=== PATIENT | female | born 1990 | race Caucasian/White ===

== ENCOUNTER 2018-01-22 06:09 | Inpatient (IN) | payer OTHER, SELFPAY ==
[2018-01-22] MEDS ORDERED: OXYTOCIN 30 UNITS IN 0.9% NaCl 500ML IV BAG (J2590) As Ordered (07:22)
[2018-01-22 08:41] LABS: HEMATOCRIT 38.9 % (36.0-47.0); HEMOGLOBIN 13.4 g/dl (12.0-16.0); MEAN CORPUSCULAR HGB CONC 34.4 g/dl (32.0-36.5); PLATELET COUNT, AUTOMATED 227 10^3/uL (150-450); RED BLOOD COUNT 4.47 10^6/uL (4.00-5.40); RED CELL DISTRIBUTION WIDTH 14.6 % (11.5-14.5); WHITE BLOOD COUNT 21.2 10^3/uL (4.0-10.0)
[2018-01-22] MEDS ORDERED: PROMETHAZINE INJ 25 MG/ML VIAL (J2550) IV (09:00)
[2018-01-22] MEDS ORDERED: NALBUPHINE HCL 10 MG/ML AMP (J2300) IM (09:00)
[2018-01-22] MEDS: NALBUPHINE HCL 10 MG/ML AMP (J2300) IV (09:27)
[2018-01-22] MEDS ORDERED: METOCLOPRAMIDE INJ 10MG/2ML VIAL (J2765) IV (11:00)
[2018-01-22] MEDS ORDERED: MEASLES,MUMPS,RUBELLA VACCINE INJ (MMR-II) (90707) SC (11:00)
[2018-01-22] MEDS ORDERED: DIBUCAINE 1% OINTMENT 30GM TOP (11:00)
[2018-01-22] MEDS: OXYTOCIN DRIP 30 UNITS in APPROPRIATE DILUENT 1 EA IV (11:07)
[2018-01-22] MEDS: IBUPROFEN 800 MG TAB PO ×2 (11:36→19:45)
[2018-01-22] MEDS: DOCUSATE SODIUM 100 MG CAP PO ×2 (15:44→19:45)
[2018-01-22] MEDS: ACETAMINOPHEN TAB 650MG DOSE (2X325MG) PO (15:44)
[2018-01-22] MEDS: PRENATAL VITAMINS CHEWABLE TABLET PO (15:44)
[2018-01-23] MEDS: IBUPROFEN 800 MG TAB PO ×2 (04:41→15:48)
[2018-01-23] MEDS: PRENATAL VITAMINS CHEWABLE TABLET PO (08:07)
[2018-01-23] MEDS: DOCUSATE SODIUM 100 MG CAP PO (08:07)
[2018-01-23 12:17] LABS: ANTIBODY IDENTIFICATION 1 1
[2018-01-23] MEDS: RHOGAM 300 MCG (1500 IU) INJ (J2790) IM (12:30)
== END 2018-01-23 17:07 | disposition home or self-care (01) | DRG 775 ==
LOC: M LDO 06:09 → M LDI 06:44 → M OBS 13:13
PROVIDERS: Obstetrics & Gynecology
PROC: 10E0XZZ Delivery of Products of Conception, External Approach (ICD-10-PCS; principal; 2018-01-22)
PROC: 10907ZC Drainage of Amniotic Fluid, Therapeutic from Products of Conception, Via Natural or Artificial Opening (ICD-10-PCS; 2018-01-22)
DX: O80 Encounter for full-term uncomplicated delivery (principal); Z3A.39 39 weeks gestation of pregnancy; Z37.0 Single live birth

== ENCOUNTER 2018-01-28 11:09 | Emergency (ER) | payer OTHER ==
[2018-01-28] MEDS: NS 1,000 ML IV (12:15)
[2018-01-28 12:45] LABS: BASO # 0.1 10^3/uL (0.0-0.2); BASO % 0.6 % (0.0-1.0); EOS # 0.2 10^3/uL (0.0-0.50); EOS % 2.2 % (0.0-3.0); HEMATOCRIT 42.6 % (36.0-47.0); HEMOGLOBIN 14.4 g/dl (12.0-15.5); IMMATURE GRANULOCYTE % 0.5 % (0-3.0); LYMPH # 2.6 10^3/uL (1.5-6.5); LYMPH % 23.3 % (24.0-44.0); MEAN CORPUSCULAR HEMOGLOBIN 30.1 pg (27.0-33.0); MEAN CORPUSCULAR HGB CONC 33.8 g/dl (32.0-36.5); MEAN CORPUSCULAR VOLUME 89.1 fl (80.0-96.0); MONO # 0.7 10^3/uL (0.0-0.8); MONO % 6.3 % (0.0-5.0); NEUTROPHILS # 7.4 10^3/uL (1.8-7.7); NEUTROPHILS % 67.1 % (36.0-66.0); PLATELET COUNT, AUTOMATED 259 10^3/uL (150-450); RED BLOOD COUNT 4.78 10^6/uL (4.00-5.40); RED CELL DISTRIBUTION WIDTH 14.3 % (11.5-14.5); WHITE BLOOD COUNT 11.1 10^3/uL (4.0-10.0)
[2018-01-28 13:02] LABS: KETONE, URINE AUTO RFX NEGATIVE (NEGATIVE); LEUKOCYTE ESTERASE UR AUTO RFX NEGATIVE (NEGATIVE); NITRITE, URINE AUTO RFX NEGATIVE (NEGATIVE); RBC, URINE AUTO RFX 24 /HPF (0-3); SPECIFIC GRAVITY UR AUTO RFX 1.012 (1.002-1.035); SQUAM EPITHELIAL CELL UR AURFX 0 /HPF (0-6); WBC, URINE AUTO RFX 1 /HPF (0-3)
[2018-01-28 13:11] LABS: INR 0.98; PARTIAL THROMBOPLASTIN TIME 28.3 SECONDS (26.8-37.9); PROTHROMBIN TIME 13.1 SECONDS (12.4-14.5)
[2018-01-28 13:14] LABS: ALBUMIN 4.1 GM/DL (3.2-5.2); ALKALINE PHOSPHATASE 88 U/L (45-117); ALT/SGPT 42 U/L (12-78); ANION GAP 7 MEQ/L (8-16); AST/SGOT 27 U/L (7-37); BILIRUBIN,DIRECT 0.1 MG/DL (0.0-0.2); BILIRUBIN,TOTAL 0.5 MG/DL (0.2-1.0); BLOOD UREA NITROGEN 11 MG/DL (7-18); CARBON DIOXIDE LEVEL 25 MEQ/L (21-32); CHLORIDE LEVEL 109 MEQ/L (98-107); CREATININE FOR GFR 0.55 MG/DL (0.55-1.30); GLOMERULAR FILTRATION RATE > 60.0 (>60); GLUCOSE, FASTING 79 MG/DL (70-100); POTASSIUM SERUM 3.7 MEQ/L (3.5-5.1); SODIUM LEVEL 141 MEQ/L (136-145); TOTAL PROTEIN 8.2 GM/DL (6.4-8.2)
[2018-01-28 13:15] LABS: LACTIC ACID SEPSIS PROTOCOL 0.7 MMOL/L (0.4-2.0)
== END 2018-01-28 14:47 | disposition home or self-care (01) ==
LOC: M ED 11:09
DX: O72.2 Delayed and secondary postpartum hemorrhage (principal)
CPT/HCPCS: 76856

== ENCOUNTER → 2018-06-14 | Outpatient (REF) | payer OTHER | LOC: M SFHCLERA 14:49 | DX: N39.0 Urinary tract infection, site not specified (principal) | CPT/HCPCS: 87086 ==

== ENCOUNTER 2019-04-23 09:25 | Outpatient (CLI) | payer OTHER ==
[~2019-04-23] VITALS: Ht 157.5 cm; Wt 61.1 kg
[~2019-04-23 09:25] MED LIST: COLA100C5 PO; IBUP-1114 PO; MAPA500T2 PO; PRENTAB9 PO
[2019-04-23 09:41] VITALS: BP 102/65
[2019-04-23] MEDS ORDERED: ALKACAP5 PO (09:44)
[2019-04-23] MEDS ORDERED: ZANTTAB PO (11:01)
--- NOTE | 2019-04-23 11:16 | HPE ---
DATE OF ADMISSION: 04/23/2019 29-year 3, para 2, last menstrual period (LMP) 10/29/2018, estimated date of confinement (EDC) 08/05/2019 at 25 and 3 weeks of gestation with history of gastrointestinal (GI) upset similar to her last . RISK FACTORS: She is Rh negative, short interval , GI reflux. PAST HISTORY: December 01, 2010 at 39 and 2 weeks, spontaneous vaginal delivery female, 6 pounds 11 ounces. January 22, 2018 at 38 and 3, spontaneous vaginal delivery female, 7 pounds 8 ounces. LABS: A negative. HIV negative. Hep negative. RPR negative. Rubella immune. Varicella immune. Pap normal. Urine negative. Gonorrhea and chlamydia negative. PHYSICAL EXAMINATION: On examination, no acute distress. Upper abdominal discomfort on deep palpation. Tympanic upper abdomen. No nausea or vomiting. Symphysis fundus height is appropriate for 25 weeks. heart rate is present. No contractions noted. No vaginal bleeding or discharge. Blood pressure is 102/65, respirations are 18, pulse is 85 and temperature is 98.2. Urine is 1.000, pH of 8, negative, and trace for blood. In summary, we have a 25 and 3 week gestation with symptomatic gastroesophageal reflux disease, ranitidine was prescribed and the patient has her follow-up appointment in three weeks for regular checkup and RhoGAM.
== END 2019-04-23 11:00 | disposition home or self-care (01) ==
LOC: M LDO 09:25
PROVIDERS: ATTEND Obstetrics & Gynecology
DX: O99.613 Diseases of the digestive system complicating pregnancy, third trimester (principal); K21.9 Gastro-esophageal reflux disease without esophagitis; Z3A.25 25 weeks gestation of pregnancy
CPT/HCPCS: G0378; G0463

== ENCOUNTER 2019-07-22 17:56 | Inpatient (IN) | payer OTHER ==
[~2019-07-22] VITALS: Ht 157.5 cm; Wt 68.2 kg
[~2019-07-22 17:56] MED LIST changes: +ALKACAP5 PO; +ZANT150T40 PO
[2019-07-22 18:03] VITALS: BP 110/71
[2019-07-22] MEDS ORDERED: OXYTOCIN 30 UNITS IN 0.9% NaCl 500ML IV BAG (J2590) As Ordered ONE (18:17)
[2019-07-22 18:28] LABS: HEMATOCRIT 34.7 % (36.0-47.0); HEMOGLOBIN 11.8 g/dl (12.0-15.5); MEAN CORPUSCULAR HEMOGLOBIN 28.4 pg (27.0-33.0); MEAN CORPUSCULAR VOLUME 83.6 fl (80.0-96.0); PLATELET COUNT, AUTOMATED 278 10^3/uL (150-450); RED BLOOD COUNT 4.15 10^6/uL (4.00-5.40); WHITE BLOOD COUNT 17.9 10^3/uL (4.0-10.0)
[2019-07-22 19:29] LABS: CORD GAS ABE A -2.9; CORD GAS ABE V -1.7; CORD GAS HCO3 A 21.9 MEQ/L; CORD GAS HCO3 V 21.1 MEQ/L; CORD GAS O2 SAT V 68.3 %; CORD GAS PCO2 A 38.6 mmHg; CORD GAS PCO2 V 31.7 mmHg; CORD GAS PH A 7.371 UNITS; CORD GAS PH V 7.442 UNITS; CORD GAS PO2 A 13.1 mmHg; CORD GAS PO2 V 26.8 mmHg; CORD GAS SBC A 20.1 MEQ/L; CORD GAS SBC V 22.2 MEQ/L; CORD GAS TCO2 V 22.1 MEQ/L
[2019-07-22] MEDS ORDERED: OXYTOCIN DRIP 30 UNITS in APPROPRIATE DILUENT 1 EA IV SCH (19:35)
[2019-07-22] MEDS ORDERED: RHOGAM 300 MCG (1500 IU) INJ (J2790) IM SCH (19:45)
[2019-07-22] MEDS ORDERED: OXYTOCIN INJ 10 UNITS/ML VIAL (J2590) IV ONE (19:45)
[2019-07-22] MEDS ORDERED: MOM 30ML SUSPENSION UDC PO PRN (19:45)
[2019-07-22] MEDS ORDERED: METHYLERGONOVINE MALEATE 0.2 MG TAB PO PRN (19:45)
[2019-07-22] MEDS ORDERED: DOCUSATE SODIUM 100 MG CAP PO PRN (19:45)
[2019-07-22] MEDS ORDERED: DIBUCAINE 1% OINTMENT 30GM TOP PRN (19:45)
[2019-07-22] MEDS ORDERED: ANUSOL HC CREAM 30GM TOP PRN (19:45)
[2019-07-22] MEDS ORDERED: IBUPROFEN 600 MG TAB PO PRN (19:45)
[2019-07-22] MEDS ORDERED: ACETAMINOPHEN TAB 650MG DOSE (2X325MG) PO PRN (19:45)
[2019-07-22] MEDS ORDERED: MEASLES,MUMPS,RUBELLA VACCINE INJ (MMR-II) (90707) SC SCH (19:45)
[2019-07-22] MEDS: IBUPROFEN 800 MG TAB PO PRN (20:15)
[2019-07-22 21:32] VITALS: BP 118/57
[2019-07-23] MEDS: ACETAMINOPHEN 500 MG TAB PO PRN ×3 (00:06→18:36)
[2019-07-23] MEDS: IBUPROFEN 800 MG TAB PO PRN ×2 (03:24→11:39)
[2019-07-23] MEDS ORDERED: OXYTOCIN INJ 10 UNITS/ML VIAL (J2590) As Ordered ONE (04:02)
[2019-07-23 05:55] VITALS: BP 113/68
--- NOTE | 2019-07-23 07:47 | HPE ---
DATE OF ADMISSION: 07/22/2019 This lady is a 28-year-old 3, para 2, last menstrual period (LMP) 10/29/2018, estimated date of confinement (EDC) 08/05/2019 at 38 weeks of gestation in active labor at 8 cm, bulging membranes. RISK FACTOR: She had a short interval . She is Rh negative, received RhoGAM. PAST HISTORY: In November 2010, at 39 and 2-week spontaneous vaginal delivery female 6 pounds 11 ounces. December 2017, at 38 and 3, spontaneous vaginal delivery of female 7 pounds 8 ounces. Labs are A negative, HIV negative, hep negative, RPR negative, rubella immune. Varicella immune. Pap normal. Urine negative. Gonorrhea, chlamydia negative. 1-hour glucose originally was 143. Her 3-hour GTT , her fasting was 88, her 1-hour was 175, her 2-hour 138 and at 3 hours not performed. GBS is negative. RhoGAM was given at 05/16/2019. Presently she is distressed in active labor. Symphysis fundus height is 40. Four-quadrant bowel sounds, occiput anterior (OA), bulging membranes, 8 cm. Category 1 strip temperature is 99.1, blood pressure 110/71, respirations are 20, pulse is 78. The plan is to hydrate her. We will monitor her for delivery. She declines the epidural or analgesics. Presently, she has a category 1 strip normocephalic, atraumatic. Neck: Full range of motion. Pupils equally reactive to light. Distal pulses symmetric. No evidence of deep venous thrombosis (DVT), pulmonary embolus (PE) or superficial facial phlebitis. Chest is clear bilaterally bases. No wheezes or rhonchi. No costovertebral (CVA) tenderness. Abdomen: Soft. four-quadrant bowel sounds appropriate. Symphysis fundus height. She has no rashes, lesions or pruritus. No arthralgia, myalgia. No complaint joint pain. No complaint cough, wheeze, shortness of breath or dyspnea on exertion. No infectious no bleeding. No bruising. Neuro complete. No incontinency or frequency. No nausea, vomiting, diarrhea or constipation. No diabetic issues, despite the fact that she had a 3-hour GTT and her 2-hour is almost at the upper limit of normal. We reviewed the consent for vaginal delivery, which is delivery through the vagina, possible assistance with forceps or vacuum devices when needed for maternal or indications. Forceps or vacuum device they can assist with vaginal delivery when normal pushing efforts cannot achieve delivery on their own or when delivery is needed in an emergency for baby's well-being. Medications may require to induce or augment labor in order to achieve vaginal delivery. An episiotomy may be required to help the baby deliver vaginally. She may also require repair of any lacerations or tears of her vagina or vulva that are caused by delivery. In some cases emergencies can arise that require emergency section so quickly, there may not be any time to sign consent forms. However, physician will definitely explained the reasons and that the fact is section may be indicated and be better for both baby and mother in life-threatening situations. Risk of vaginal delivery include bleeding, infection, injury to the vagina pelvic structures, injury to baby, damage to the uterus, reaction to anesthesia uterine rupture, risk of hysterectomy for life-threatening bleeding or . Medications used maybe to induce or augment the labor, increased risk of infection, uterine tachysystole, uterine rupture, heart rate abnormalities, need for emergency delivery or possibly hysterectomy, hemorrhage. Additional risks with use of forceps and vacuum include scratches, hematomas of the head and intracranial bleed. The patient verbalized understanding risks and elected to proceed. We spent 25 minutes in discussion in between contractions. All questions were answered.
[2019-07-23 07:50] LABS: HEMOGLOBIN 11.1 g/dl (12.0-15.5); MEAN CORPUSCULAR HEMOGLOBIN 28.5 pg (27.0-33.0); MEAN CORPUSCULAR HGB CONC 33.6 g/dl (32.0-36.5); MEAN CORPUSCULAR VOLUME 84.6 fl (80.0-96.0); PLATELET COUNT, AUTOMATED 234 10^3/uL (150-450); WHITE BLOOD COUNT 17.5 10^3/uL (4.0-10.0)
[2019-07-23] MEDS: PRENATAL VITAMINS CHEWABLE TABLET PO SCH (08:16)
--- NOTE | 2019-07-23 08:36 | IPN ---
DATE: 07/22/2019 This patient has requested circumcision of their male infant after discussing risks and benefits of circumcision. The medical and nonmedical indications, penile block and aftercare expressed understanding penile block aftercare and bleeding, signed the consent form. We await the clearance by the foundation engineer. All questions were answered. 20-minute discussion.
--- NOTE | 2019-07-23 12:28 | DN ---
DATE: 07/22/2019 This lady is a 3, para 2 admitted at 38 weeks of gestation in active labor. On admission she was found to be 8 cm dilated. She did not recall having her membranes ruptured and on examination, we did not find any membranes nor was there any fluid. She elected not to have an epidural or anything for analgesia. She said she precipitates quite rapidly and at full dilatation, she had a spontaneous vaginal delivery of a live male infant weighing 7 pounds 9 ounces, 3420 grams, as were 8 and 9 at one and five minutes respectively. Arterial pH was 7.37, base excess -2.9, venous pH 7.44, base excess -1.7. Placenta delivered spontaneously thereafter. Appeared to have an abruption of about 50%. Her uterus contracted well under Pitocin. On examination, the anterior, posterior lateral johnston were intact. The sphincter was tight. No damage was noted. No lacerations or tears. In summary we have a 38-week gestation, short interval delivered a live male infant uneventfully.
--- NOTE | 2019-07-23 15:37 | IPN ---
DATE: 07/22/2019 day #1. This lady is a 29-year-old 3 now para 3 who was admitted in active labor, spontaneous vaginal delivery of a male , 7 pounds 9 ounces, 3420 grams. scores of 8 and 9 at 1 and 5 minutes respectively. Arterial pH was 7.37, base excess was -2.9, venous pH was 7.44 with a venous base excess of -1.7. She had an intact perineum, did have about a 50% abruption, however, the uterus contracted well under Pitocin. Her admitting hemoglobin 11.8, hematocrit 34.7, and platelets were 278. Day one CBC is pending. Her vital signs today - her blood pressure is 113/68, respirations are 18, pulse is 70 and temperature is 99.0. We discussed phlebitis, cystitis, mastitis, metritis and cellulitis, diet, exercise, pain management, perineal, breast and wound care. She is uncertain as to what she wants to do for control and will discuss that at the 6-week checkup. In summary we have a term gestation delivered a live male . Plans are for circumcision sometime today and plan for discharge tomorrow morning.
[2019-07-23 18:00] VITALS: BP 111/56
[2019-07-24] MEDS: IBUPROFEN 800 MG TAB PO PRN (04:58)
[2019-07-24 05:14] VITALS: BP 106/67
[2019-07-24] MEDS ORDERED: IBUP-1022 PO (07:09)
[2019-07-24] MEDS ORDERED: COLA100C5 PO (07:09)
--- NOTE | 2019-07-24 07:23 | OBDS ---
[facility] Obstetrical Discharge Sum. Obstetrical Discharge Summary Date: Jul 24, 2019 : 3 Term: 3 Pre-term: 0 Abortions: 0 Livin VDRL: Non-Reactive Rh: Negative Rubella: Immune Sex: Male Infant Weight: pounds (7), ounces (9), grams (3420) A/P, Post Course List any complications Admission diagnosis: Term, Labor Discharge diagnosis: Term, Labor, Single Live Condition at Discharge: Good Discharge Instructions: Home Activity: As tolerated, Pelvic rest Diet: Regular Medications: Ibuprofen, Colace Hospital Course: Pee is a 28-year-old [id number] s/p complicated by abruption of ~50% on [id number] of a viable male . She was given Methergine series as well as pitocin. She remained afebrile and stable throughout her hospital stay. She met all criteria for discharge on day 2. VS: Reviewed, normotensive, afebrile, nontachycardic GEN: WNWD, NAD ABD: Soft, NT/ND, Uterus @ U-1 EXT: No edema, negative Siri's sign Plan: - Continue routine care - Ibuprofen and Tylenol for pain - Colace for bowel regime - Encouraged /Ambulation/Hydration - Contraction: undecided, counseled - will discussed at 6 weeks - Discussed strict return precautions - Discharge home today Follow-up: in 6 weeks for appointment. DO MARTIN Musa CRYSTAL B. DO Jul 24, 2019 07:23
[2019-07-24] MEDS: PRENATAL VITAMINS CHEWABLE TABLET PO SCH (10:38)
== END 2019-07-24 12:15 | disposition home or self-care (01) | DRG 807 ==
LOC: M LDO 17:56 → M LDI 18:11 → M OBS 21:05
PROVIDERS: ADMIT Obstetrics & Gynecology; ATTEND Obstetrics & Gynecology
PROC: 10E0XZZ Delivery of Products of Conception, External Approach (ICD-10-PCS; principal; 2019-07-22)
DX: O45.93 Premature separation of placenta, unspecified, third trimester (principal); Z37.0 Single live birth; Z3A.38 38 weeks gestation of pregnancy; O62.3 Precipitate labor